=== PATIENT | female | born 1950 | race Caucasian/White ===

== ENCOUNTER 2023-10-25 12:51 | Emergency (ER) | payer MEDICARE ==
[~2023-10-25] VITALS: Ht 160 cm; Wt 73.9 kg
[~2023-10-25 12:51] MED LIST: AMIODARONE HCL200 MG; AMIODARONE HCL200 MG PO; ATORVASTATIN CA40 MG; BUSPIRONE HCL5 MG; BUTRANS1 EAC1; CYMBALTA30 MG; DESMOPRESSIN; DULOXETINE HCL60 MG; GABAPENTIN100 MG PO; HYDRALAZINE HC100 MG PO; LIDODERM700 MG; LOSARTAN POTASS25 MG; MACROBID 100 M100 MG PO; METFORMIN HCL500 MG PO; METOPROLOL TART50 MG PO; MIRTAZAPINE7.5 MG; ONDANSETRON ODT4 MG PO; OXYCODONE-ACET1 EAC6; PANTOPRAZOLE SO40 MG PO; PLAVIX75 MG PO; TRAZODONE HCL50 MG; TROSPIUM CHLORI20 MG; XARELTO20 MG PO
[2023-10-25 13:35] VITALS: PULSE 73; RESP 16; TEMP 97.9; O2SAT 100
[2023-10-25] MEDS ORDERED: CEFDINIR300 MG PO (14:06)
== END 2023-10-25 15:29 | disposition home or self-care (01) ==
LOC: ER 12:57
DX: Z46.6 Encounter for fitting and adjustment of urinary device (principal); I10 Essential (primary) hypertension; D64.9 Anemia, unspecified; K21.9 Gastro-esophageal reflux disease without esophagitis; G47.30 Sleep apnea, unspecified; F41.9 Anxiety disorder, unspecified; F32.A Depression, unspecified; Z86.73 Personal history of transient ischemic attack (TIA), and cerebral infarction without residual deficits
CPT/HCPCS: 51700; 87086; 87186; 99283

== ENCOUNTER 2023-12-05 00:16 | Inpatient (IN) | payer MEDICARE ==
[~2023-12-05] VITALS: Ht 160 cm; Wt 83.7 kg
[2023-12-05] VITALS (16 sets, daily range): BP systolic 113–144; BP diastolic 56–90; PULSE 64–87; RESP 16–20; TEMP 97.9–98.6; O2SAT 96–100
[~2023-12-05 00:16] MED LIST changes: +CEFDINIR300 MG PO; -MIRTAZAPINE7.5 MG; +MIRTAZAPINE7.5 MG PO
[2023-12-05 01:28] LABS: BASOPHILS # (AUTO) 0.1 (0.0-0.1); BASOPHILS % 0.7 % (0.0-1.0); EOSINOPHILS # (AUTO) 0.7 (0.0-0.4); EOSINOPHILS % 6.9 % (0.0-6.0); HEMATOCRIT 23.6 % (34.2-44.1); HEMOGLOBIN 7.4 g/dL (12.0-16.0); LYMPHOCYTES # (AUTO) 1.8 (1.0-3.2); LYMPHOCYTES % 16.8 % (18.0-39.1); MEAN CORPUSCULAR HEMOGLOBIN 33.8 pg (28-32); MEAN CORPUSCULAR HGB CONC 31.4 g/dL (31-35); MEAN CORPUSCULAR VOLUME 107.8 fL (81-99); MONOCYTES # (AUTO) 1.3 (0.2-0.8); MONOCYTES % 11.8 % (4.4-11.3); NEUTROPHILS # (AUTO) 6.8 (2.1-6.9); NEUTROPHILS % 63.3 % (38.7-80.0); PLATELET COUNT 401 x10e3/uL (140-360); RED BLOOD COUNT 2.19 x10e6/uL (3.6-5.1); RED CELL DISTRIBUTION WIDTH 21.4 % (11.7-14.4); WHITE BLOOD COUNT 10.69 x10e3/uL (4.8-10.8)
[2023-12-05 01:48] LABS: ALBUMIN 2.7 g/dL (3.5-5.0); ALBUMIN/GLOBULIN RATIO 0.7 (0.8-2.0); BILIRUBIN,TOTAL 0.9 mg/dL (0.2-1.2); CALCIUM 8.3 mg/dL (8.4-10.2); CREATININE, SERUM 0.8 mg/dL (0.57-1.11); TOTAL PROTEIN 6.5 g/dL (6.5-8.1)
[2023-12-05] MEDS ORDERED: DEXTROSE 50% SYRINGE 50 ML IV PRN (03:15)
[2023-12-05] MEDS: SODIUM CHLORIDE 0.9% 1000ML 1,000 ML IV ONE (03:30)
[2023-12-05] MEDS: Vancomycin IV 1 GM in SODIUM CHLORIDE 0.9% 250ML 250 ML IV SCH (04:23)
[2023-12-05] MEDS ORDERED: SODIUM CHLORIDE 0.9% 250ML 250 ML ONE ×2 (04:29→06:37)
[2023-12-05] MEDS ORDERED: Vancomycin IV 1 GM VIAL ONE (04:29)
[2023-12-05] MEDS: ALBUTEROL SULF 0.083% NEB SOLN 3 ML NEB NEB SCH (07:46)
[2023-12-05] MEDS: SODIUM CHLORIDE 0.9% 250ML 250 ML IV ONE (07:59)
[2023-12-05] MEDS: INSULIN REGULAR, HUMAN 100 UNIT/1 ML SQ SCH (08:01)
[2023-12-05] MEDS ORDERED: IOPAMIDOL 370 MG/ML 100 ML INFUS..BTL INJ ONE (13:58)
[2023-12-05] MEDS ORDERED: MIRTAZAPINE 15 MG TAB PO SCH (17:00)
[2023-12-05] MEDS: METFORMIN HCL 500 MG TAB PO SCH (17:03)
[2023-12-05] MEDS: DULOXETINE HCL 30 MG DELAYED RELEASE PO SCH (17:04)
[2023-12-05 17:26] LABS: % IRON SATURATION 79 % (15-50); IRON 139 ug/dL (50-170); TOTAL IRON BINDING CAPACITY 176 ug/dL (261-478); TRANSFERRIN 126 mg/dL (180-382)
[2023-12-05] MEDS: ATORVASTATIN 40 MG TAB PO SCH (20:57)
[2023-12-05] MEDS: TRAZODONE HCL 50 MG TAB PO SCH (20:57)
[2023-12-06] VITALS (14 sets, daily range): BP systolic 107–151; BP diastolic 45–70; PULSE 74–103; RESP 18–20; TEMP 97.8–98.7; O2SAT 90–100
[2023-12-06 05:13] LABS: BASOPHILS # (AUTO) 0.1 (0.0-0.1); BASOPHILS % 0.5 % (0.0-1.0); EOSINOPHILS # (AUTO) 0.5 (0.0-0.4); EOSINOPHILS % 4.2 % (0.0-6.0); HEMATOCRIT 26.3 % (34.2-44.1); HEMOGLOBIN 8.2 g/dL (12.0-16.0); LYMPHOCYTES # (AUTO) 1.3 (1.0-3.2); LYMPHOCYTES % 11.5 % (18.0-39.1); MEAN CORPUSCULAR HGB CONC 31.2 g/dL (31-35); MEAN CORPUSCULAR VOLUME 102.7 fL (81-99); MONOCYTES # (AUTO) 1.1 (0.2-0.8); MONOCYTES % 9.7 % (4.4-11.3); NEUTROPHILS # (AUTO) 8.4 (2.1-6.9); NEUTROPHILS % 73.6 % (38.7-80.0); PLATELET COUNT 395 x10e3/uL (140-360); RED BLOOD COUNT 2.56 x10e6/uL (3.6-5.1); RED CELL DISTRIBUTION WIDTH 24.6 % (11.7-14.4); WHITE BLOOD COUNT 11.39 x10e3/uL (4.8-10.8)
[2023-12-06] MEDS ORDERED: Vancomycin IV 1 GM VIAL ONE (05:17)
[2023-12-06] MEDS ORDERED: Azithromycin IV 500 MG 10 ML VIAL ONE (05:18)
[2023-12-06 05:38] LABS: ALBUMIN 2.7 g/dL (3.5-5.0); ALBUMIN/GLOBULIN RATIO 0.8 (0.8-2.0); ANION GAP 12.8 mmol/L (8-16); BILIRUBIN,TOTAL 1.3 mg/dL (0.2-1.2); CALCIUM 8.4 mg/dL (8.4-10.2); CREATININE, SERUM 0.74 mg/dL (0.57-1.11); POTASSIUM 4.8 mmol/L (3.5-5.1); TOTAL PROTEIN 5.9 g/dL (6.5-8.1)
[2023-12-06] MEDS ORDERED: HYDRALAZINE HCL 100 MG TABLET PO SCH (06:00)
[2023-12-06 07:11] LABS: INR 1.05; PROTHROMBIN TIME 14.2 seconds (11.9-14.5)
[2023-12-06] MEDS: BUDESONIDE 0.5MG/2 ML NEB INH SCH (07:48)
[2023-12-06] MEDS: PANTOPRAZOLE SOD 40 MG TABEC PO SCH (09:45)
[2023-12-06] MEDS: LOSARTAN POTASSIUM 25 MG TAB PO SCH (09:45)
[2023-12-06] MEDS: GABAPENTIN 100 MG CAP PO SCH (09:45)
[2023-12-06] MEDS: LIDOCAINE 4% PATCH TP SCH (09:45)
[2023-12-06] MEDS: METOPROLOL TARTRATE 50 MG TAB PO SCH (09:45)
[2023-12-06] MEDS: AMIODARONE HCL 200 MG TAB PO SCH (09:46)
[2023-12-06] MEDS: CLOPIDOGREL BISULFATE 75 MG TAB PO SCH (10:32)
[2023-12-06] MEDS: RIVAROXABAN 20 MG TABLET PO SCH (10:32)
[2023-12-06 16:10] LABS: BODY FLUID TYPE PLEURAL
[2023-12-06 16:11] LABS: BODY FLUID APPEARANCE SL.CLOUDY; BODY FLUID COLOR YELLOW
[2023-12-06 16:43] LABS: WBC,BODY FLUID 118 cells/uL
[2023-12-06 16:44] LABS: RBC,BODY FLUID < 2000 cells/uL
[2023-12-06] MEDS ORDERED: HYDRALAZINE HCL 20 MG/ML VIAL IV PRN (18:15)
[2023-12-06 18:16] LABS: LYMPHOCYTES,BODY FLUID 18 %; MONO/MACROPHG,BODY FLUID 41 %; NEUTROPHILS,BODY FLUID 14 %; OTHER CELLS,BODY FLUID 27 %; TOTAL CELLS COUNTED (DIFF) 100
[2023-12-06] MEDS: MIRTAZAPINE 15 MG TAB PO SCH (20:42)
[2023-12-07] VITALS (13 sets, daily range): BP systolic 110–131; BP diastolic 45–61; PULSE 77–104; RESP 18–22; TEMP 97.5–98.6; O2SAT 92–100
[2023-12-07 04:57] LABS: BASOPHILS % 0.2 % (0.0-1.0); EOSINOPHILS # (AUTO) 0.4 (0.0-0.4); EOSINOPHILS % 3.1 % (0.0-6.0); HEMATOCRIT 26.1 % (34.2-44.1); LYMPHOCYTES # (AUTO) 1.8 (1.0-3.2); LYMPHOCYTES % 14.6 % (18.0-39.1); MEAN CORPUSCULAR HEMOGLOBIN 32.5 pg (28-32); MEAN CORPUSCULAR HGB CONC 30.7 g/dL (31-35); MONOCYTES # (AUTO) 1.4 (0.2-0.8); MONOCYTES % 11.1 % (4.4-11.3); NEUTROPHILS # (AUTO) 8.7 (2.1-6.9); NEUTROPHILS % 70.4 % (38.7-80.0); PLATELET COUNT 428 x10e3/uL (140-360); RED BLOOD COUNT 2.46 x10e6/uL (3.6-5.1); RED CELL DISTRIBUTION WIDTH 23.9 % (11.7-14.4)
[2023-12-07 05:02] LABS: MEAN CORPUSCULAR VOLUME 106.1 fL (81-99)
[2023-12-07 05:17] LABS: ANION GAP 13.5 mmol/L (8-16); CALCIUM 8.5 mg/dL (8.4-10.2); CREATININE, SERUM 0.91 mg/dL (0.57-1.11); POTASSIUM 4.5 mmol/L (3.5-5.1)
[2023-12-07] MEDS: ONDANSETRON HCL 4 MG ORAL DISINTEGRATING TAB PO PRN (09:05)
[2023-12-07] MEDS ORDERED: CELECOXIB 100 MG CAP PO PRN (09:15)
[2023-12-07] MEDS: PANTOPRAZOLE SOD 40 MG TABEC PO ONE (12:52)
[2023-12-08] VITALS (14 sets, daily range): BP systolic 111–132; BP diastolic 43–76; PULSE 72–96; RESP 16–24; TEMP 97.3–99.2; O2SAT 90–98
[2023-12-08 05:30] LABS: BASOPHILS % 0.2 % (0.0-1.0); EOSINOPHILS # (AUTO) 0.5 (0.0-0.4); EOSINOPHILS % 3.6 % (0.0-6.0); HEMATOCRIT 23.5 % (34.2-44.1); HEMOGLOBIN 7.4 g/dL (12.0-16.0); LYMPHOCYTES # (AUTO) 1.6 (1.0-3.2); LYMPHOCYTES % 12.5 % (18.0-39.1); MEAN CORPUSCULAR HEMOGLOBIN 32.7 pg (28-32); MEAN CORPUSCULAR HGB CONC 31.5 g/dL (31-35); MONOCYTES # (AUTO) 1.3 (0.2-0.8); MONOCYTES % 10.2 % (4.4-11.3); NEUTROPHILS # (AUTO) 9.4 (2.1-6.9); PLATELET COUNT 435 x10e3/uL (140-360); RED BLOOD COUNT 2.26 x10e6/uL (3.6-5.1); RED CELL DISTRIBUTION WIDTH 23.5 % (11.7-14.4); WHITE BLOOD COUNT 12.91 x10e3/uL (4.8-10.8)
[2023-12-08 05:53] LABS: ANION GAP 13.4 mmol/L (8-16); CALCIUM 8.3 mg/dL (8.4-10.2); CREATININE, SERUM 0.79 mg/dL (0.57-1.11); POTASSIUM 4.4 mmol/L (3.5-5.1)
[2023-12-08] MEDS: PANTOPRAZOLE SOD 40 MG TABEC PO SCH (10:32)
[2023-12-08] MEDS: ACETAMINOPHEN 325 MG TAB PO ONE (18:01)
[2023-12-08] MEDS: HYDROCODONE/APAP 10MG-325MG TAB PO PRN (23:10)
[2023-12-09] VITALS (12 sets, daily range): BP systolic 108–136; BP diastolic 60–74; PULSE 74–121; RESP 20–22; TEMP 97.4–98.7; O2SAT 93–98
[2023-12-09 05:46] LABS: BASOPHILS # (AUTO) 0.1 (0.0-0.1); BASOPHILS % 0.3 % (0.0-1.0); EOSINOPHILS # (AUTO) 0.8 (0.0-0.4); EOSINOPHILS % 4.6 % (0.0-6.0); HEMATOCRIT 24.3 % (34.2-44.1); HEMOGLOBIN 7.6 g/dL (12.0-16.0); LYMPHOCYTES # (AUTO) 2.8 (1.0-3.2); LYMPHOCYTES % 16.4 % (18.0-39.1); MEAN CORPUSCULAR HEMOGLOBIN 33.2 pg (28-32); MEAN CORPUSCULAR HGB CONC 31.3 g/dL (31-35); MEAN CORPUSCULAR VOLUME 106.1 fL (81-99); MONOCYTES # (AUTO) 1.9 (0.2-0.8); MONOCYTES % 10.7 % (4.4-11.3); NEUTROPHILS # (AUTO) 11.7 (2.1-6.9); NEUTROPHILS % 67.4 % (38.7-80.0); PLATELET COUNT 522 x10e3/uL (140-360); RED BLOOD COUNT 2.29 x10e6/uL (3.6-5.1); RED CELL DISTRIBUTION WIDTH 22.8 % (11.7-14.4)
[2023-12-09 06:12] LABS: ALBUMIN 2.5 g/dL (3.5-5.0); ALBUMIN/GLOBULIN RATIO 0.6 (0.8-2.0); ANION GAP 14.4 mmol/L (8-16); BILIRUBIN,TOTAL 0.6 mg/dL (0.2-1.2); CALCIUM 8.8 mg/dL (8.4-10.2); CREATININE, SERUM 0.77 mg/dL (0.57-1.11); POTASSIUM 4.4 mmol/L (3.5-5.1); TOTAL PROTEIN 6.5 g/dL (6.5-8.1)
[2023-12-09] MEDS: Vancomycin IV 1 GM in SODIUM CHLORIDE 0.9% 250ML 250 ML IV SCH (06:26)
[2023-12-09 07:13] LABS: PLATELET ESTIMATE ADEQUATE; PLATELET MORPHOLOGY COMMENT NORMAL; RBC MORPHOLOGY COMMENT ABNORMAL
[2023-12-09 07:14] LABS: ANISOCYTOSIS MODERATE; HYPOCHROMASIA MODERATE
[2023-12-09 09:54] LABS: TOTAL PROTEIN,BODY FLUID 1.5 g/dL
[2023-12-09 10:47] LABS: FREE THYROXINE INDEX 2.1853 (1.4-3.8); T3 UPTAKE 30.65 % (22.5-37.0); THYROID STIMULATING HORMONE 1.644 uIU/mL (0.350-4.940)
[2023-12-09 10:54] LABS: T4 (THYROXINE) 7.13 ug/dL (4.5-10.9)
[2023-12-09] MEDS: METHYLPREDNISOLONE SOD SUCC 40 MG/ML VIAL 1ML IV SCH (13:07)
[2023-12-09] MEDS: FUROSEMIDE INJ 10 MG/ML 2 ML VIAL IV ONE (13:07)
[2023-12-09 18:47] LABS: % IRON SATURATION 12 % (15-50); IRON 21 ug/dL (50-170); TOTAL IRON BINDING CAPACITY 169 ug/dL (261-478); TRANSFERRIN 121 mg/dL (180-382)
[2023-12-09] MEDS ORDERED: INSULIN GLARGINE 100 UNITS/ML VIAL SQ SCH (21:00)
[2023-12-09] MEDS: INSULIN GLARGINE 100 UNITS/ML VIAL SQ SCH (22:45)
[2023-12-10] VITALS (17 sets, daily range): BP systolic 107–118; BP diastolic 44–71; PULSE 78–97; RESP 16–26; TEMP 97.2–98; O2SAT 9–99
[2023-12-10 05:38] LABS: BASOPHILS % 0.1 % (0.0-1.0); HEMATOCRIT 23.6 % (34.2-44.1); HEMOGLOBIN 7.2 g/dL (12.0-16.0); LYMPHOCYTES # (AUTO) 0.4 (1.0-3.2); LYMPHOCYTES % 2.8 % (18.0-39.1); MEAN CORPUSCULAR HEMOGLOBIN 32.1 pg (28-32); MEAN CORPUSCULAR HGB CONC 30.5 g/dL (31-35); MEAN CORPUSCULAR VOLUME 105.4 fL (81-99); MONOCYTES # (AUTO) 1.1 (0.2-0.8); MONOCYTES % 7.4 % (4.4-11.3); NEUTROPHILS % 89.2 % (38.7-80.0); PLATELET COUNT 510 x10e3/uL (140-360); RED BLOOD COUNT 2.24 x10e6/uL (3.6-5.1); RED CELL DISTRIBUTION WIDTH 22.9 % (11.7-14.4); WHITE BLOOD COUNT 14.56 x10e3/uL (4.8-10.8)
[2023-12-10 06:45] LABS: ANION GAP 16.9 mmol/L (8-16); CALCIUM 8.8 mg/dL (8.4-10.2); CREATININE, SERUM 0.87 mg/dL (0.57-1.11); POTASSIUM 4.9 mmol/L (3.5-5.1)
[2023-12-10] MEDS: FUROSEMIDE INJ 10 MG/ML 2 ML VIAL IV SCH (08:41)
[2023-12-10 09:14] LABS: LYMPHOCYTES % (MANUAL) 3 % (19-48); MONOCYTES % (MANUAL) 4 % (3.4-9.0); NEUTROPHILS % (MANUAL) 93 % (40-74)
[2023-12-10] MEDS ORDERED: CHLORASEPTIC SPRAY 177 ML BTL MM PRN (09:15)
[2023-12-10 09:18] LABS: PLATELET ESTIMATE MODERATELY INCREASED; PLATELET MORPHOLOGY COMMENT FEW LARGE
[2023-12-10 09:24] LABS: ANISOCYTOSIS SLIGHT
[2023-12-10 09:26] LABS: HYPOCHROMASIA SLIGHT; RBC MORPHOLOGY COMMENT NORMAL
[2023-12-10] MEDS: IRON SUCROSE 100 MG in SODIUM CHLORIDE 0.9% 100 ML IV SCH (11:37)
[2023-12-10] MEDS ORDERED: IRON SUCROSE 100 MG in SODIUM CHLORIDE 0.9% 100 ML IV SCH (19:15)
[2023-12-11] VITALS (37 sets, daily range): BP systolic 95–153; BP diastolic 52–117; PULSE 77–96; RESP 17–38; TEMP 97.3–98.3; O2SAT 87–100
[2023-12-11] MEDS: FUROSEMIDE INJ 10 MG/ML 2 ML VIAL IV STA (05:10)
[2023-12-11] MEDS: METHYLPREDNISOLONE SOD SUCC 40 MG/ML VIAL 1ML IV SCH (05:10)
[2023-12-11] MEDS ORDERED: FUROSEMIDE INJ 10 MG/ML 2 ML VIAL ONE (05:12)
[2023-12-11] MEDS ORDERED: SODIUM CHLORIDE 0.9% 250ML 250 ML IV ONE (05:15)
[2023-12-11 05:21] LABS: BASOPHILS % 0.1 % (0.0-1.0); HEMATOCRIT 26.5 % (34.2-44.1); HEMOGLOBIN 7.8 g/dL (12.0-16.0); LYMPHOCYTES # (AUTO) 1.2 (1.0-3.2); LYMPHOCYTES % 5.8 % (18.0-39.1); MEAN CORPUSCULAR HEMOGLOBIN 32.1 pg (28-32); MEAN CORPUSCULAR HGB CONC 29.4 g/dL (31-35); MEAN CORPUSCULAR VOLUME 109.1 fL (81-99); MONOCYTES # (AUTO) 2.1 (0.2-0.8); NEUTROPHILS # (AUTO) 17.6 (2.1-6.9); NEUTROPHILS % 83.1 % (38.7-80.0); PLATELET COUNT 613 x10e3/uL (140-360); RED BLOOD COUNT 2.43 x10e6/uL (3.6-5.1); RED CELL DISTRIBUTION WIDTH 23.5 % (11.7-14.4); WHITE BLOOD COUNT 21.18 x10e3/uL (4.8-10.8)
[2023-12-11 05:54] LABS: ABG PCO2 48 mmHg (35-45); ABG PO2 54 mmHg (80-105)
[2023-12-11 05:55] LABS: ABG HCO3 30 mmol/L (22-26); ABG TCO2 31
[2023-12-11 05:58] LABS: ANION GAP 15.7 mmol/L (8-16); CALCIUM 8.9 mg/dL (8.4-10.2); CREATININE, SERUM 1.26 mg/dL (0.57-1.11)
[2023-12-11] MEDS: METHYLPREDNISOLONE SOD SUCC 40 MG/ML VIAL 1ML ONE (06:00)
[2023-12-11 06:10] LABS: BILIRUBIN,URINE NEGATIVE (NEGATIVE); CLARITY,URINE CLOUDY (CLEAR); COLOR,URINE YELLOW (YELLOW); GLUCOSE, URINE 2+ (NEGATIVE); KETONES,URINE NEGATIVE (NEGATIVE); LEUKOCYTE ESTERASE ,URINE LARGE (NEGATIVE); NITRITE,URINE NEGATIVE (NEGATIVE); PH,URINE 5.5 (5 - 7); PROTEIN,URINE DIPSTICK 1+ (NEGATIVE); URINE UROBILINOGEN 0.2 mg/dL (0.2 - 1)
[2023-12-11 06:23] LABS: BACTERIA,URINE MANY /HPF; EPITHELIAL CELLS,URINE FEW /LPF; RBC,URINE 21-50 /HPF (0-5); WBC,URINE (MAN) >50 /HPF (0-5)
[2023-12-11 06:24] LABS: YEAST,URINE MANY
[2023-12-11 06:36] LABS: POTASSIUM 5.7 mmol/L (3.5-5.1)
[2023-12-11] MEDS ORDERED: SODIUM CHLORIDE 0.9% 250ML 250 ML IV PRN (07:00)
[2023-12-11 08:41] LABS: BAND NEUTROPHILS % (MANUAL) 1 %; LYMPHOCYTES % (MANUAL) 9 % (19-48); MONOCYTES % (MANUAL) 2 % (3.4-9.0); NEUTROPHILS % (MANUAL) 88 % (40-74); NUCLEATED RED BLOOD CELLS 1
[2023-12-11 08:42] LABS: ANISOCYTOSIS MODERATE; HYPOCHROMASIA MODERATE; OVALOCYTES FEW; PLATELET ESTIMATE SLIGHTLY INCREASED; PLATELET MORPHOLOGY COMMENT NORMAL; RBC MORPHOLOGY COMMENT ABNORMAL
[2023-12-11] MEDS ORDERED: PREDNISONE 20 MG TAB PO SCH (09:00)
[2023-12-11] MEDS: ACETYLCYSTEINE 200 MG/ML 4 ML VIAL INH SCH (10:35)
[2023-12-11] MEDS: SOD POLYSTYRENE SULFONATE SUSP 15 GM/60 ML BTL PR ONE (12:14)
[2023-12-11] MEDS: Doxycycline IV 100 MG in SODIUM CHLORIDE 0.9% 100 ML IV SCH (13:15)
[2023-12-11 14:47] LABS: HEMATOCRIT 26.7 % (34.2-44.1); HEMOGLOBIN 8.4 g/dL (12.0-16.0)
[2023-12-11] MEDS: LACTULOSE SYRUP 20 GM/30 ML UDC PO ONE (17:24)
[2023-12-11] MEDS: INSULIN REGULAR, HUMAN 100 UNIT/1 ML SQ ONE (18:03)
[2023-12-11] MEDS: INSULIN GLARGINE 100 UNITS/ML VIAL SQ SCH (21:34)
[2023-12-12] VITALS (97 sets, daily range): BP systolic 100–155; BP diastolic 51–125; PULSE 33–95; RESP 16–41; TEMP 97–98.4; O2SAT 84–100
[2023-12-12 06:44] LABS: HEMATOCRIT 28.5 % (34.2-44.1); LYMPHOCYTES # (AUTO) 0.5 (1.0-3.2); LYMPHOCYTES % 3.4 % (18.0-39.1); MEAN CORPUSCULAR HGB CONC 31.6 g/dL (31-35); MEAN CORPUSCULAR VOLUME 101.4 fL (81-99); MONOCYTES # (AUTO) 0.9 (0.2-0.8); MONOCYTES % 6.3 % (4.4-11.3); NEUTROPHILS % 89.6 % (38.7-80.0); PLATELET COUNT 417 x10e3/uL (140-360); RED BLOOD COUNT 2.81 x10e6/uL (3.6-5.1); RED CELL DISTRIBUTION WIDTH 22.9 % (11.7-14.4)
[2023-12-12 07:06] LABS: ALBUMIN 2.5 g/dL (3.5-5.0); ALBUMIN/GLOBULIN RATIO 0.6 (0.8-2.0); ANION GAP 13.6 mmol/L (8-16); BILIRUBIN,TOTAL 0.8 mg/dL (0.2-1.2); CALCIUM 8.8 mg/dL (8.4-10.2); CREATININE, SERUM 0.84 mg/dL (0.57-1.11); POTASSIUM 3.6 mmol/L (3.5-5.1); TOTAL PROTEIN 6.8 g/dL (6.5-8.1)
[2023-12-12 09:45] LABS: LYMPHOCYTES % (MANUAL) 8 % (19-48); MONOCYTES % (MANUAL) 3 % (3.4-9.0); NEUTROPHILS % (MANUAL) 89 % (40-74); PLATELET ESTIMATE SLIGHTLY INCREASED; PLATELET MORPHOLOGY COMMENT NORMAL; RBC MORPHOLOGY COMMENT ABNORMAL
[2023-12-12 09:48] LABS: ANISOCYTOSIS SLIGHT
[2023-12-12] MEDS: EPOETIN ALFA-EPBX 10,000 UNIT/ML VIAL SC SCH (10:41)
[2023-12-12] MEDS: FUROSEMIDE INJ 10 MG/ML 2 ML VIAL IV ONE (11:48)
[2023-12-12] MEDS: MUPIROCIN 2% OINT 22 GM TUBE TOP SCH (17:00)
[2023-12-13] VITALS (54 sets, daily range): BP systolic 91–152; BP diastolic 47–108; PULSE 62–97; RESP 17–53; TEMP 97.6–99.2; O2SAT 83–100
[2023-12-13 00:34] LABS: ANION GAP 11.8 mmol/L (8-16); CALCIUM 8.7 mg/dL (8.4-10.2); CREATININE, SERUM 0.85 mg/dL (0.57-1.11); POTASSIUM 3.8 mmol/L (3.5-5.1)
[2023-12-13] MEDS: DEXMEDETOMIDINE 400MCG/NS100ML 100 ML IV PRN (01:00)
[2023-12-13] MEDS: FUROSEMIDE INJ 10 MG/ML 2 ML VIAL IV ONE ×2 (01:00→18:40)
[2023-12-13] MEDS ORDERED: SUCCINYLCHOLINE CHLORIDE 20 MG/ML 10ML VIAL ONE (12:19)
[2023-12-13] MEDS ORDERED: ETOMIDATE 2 MG/ML 10 ML INJ IV ONE (12:19)
[2023-12-13 15:15] LABS: CALCIUM 8.8 mg/dL (8.4-10.2); CREATININE, SERUM 0.8 mg/dL (0.57-1.11)
[2023-12-13] MEDS: PROPOFOL IV EMULSION 10MG/ML 100 ML IV PRN (22:00)
[2023-12-13] MEDS: FENTANYL 2000MCG/NS 250 250 ML IV PRN (22:00)
[2023-12-13 23:33] LABS: BASOPHILS % 0.1 % (0.0-1.0); HEMATOCRIT 23.4 % (34.2-44.1); HEMOGLOBIN 7.4 g/dL (12.0-16.0); LYMPHOCYTES # (AUTO) 0.1 (1.0-3.2); LYMPHOCYTES % 0.3 % (18.0-39.1); MEAN CORPUSCULAR HEMOGLOBIN 32.2 pg (28-32); MEAN CORPUSCULAR HGB CONC 31.6 g/dL (31-35); MEAN CORPUSCULAR VOLUME 101.7 fL (81-99); MONOCYTES # (AUTO) 0.8 (0.2-0.8); MONOCYTES % 4.5 % (4.4-11.3); NEUTROPHILS # (AUTO) 16.2 (2.1-6.9); NEUTROPHILS % 94.2 % (38.7-80.0); PLATELET COUNT 418 x10e3/uL (140-360); RED CELL DISTRIBUTION WIDTH 21.6 % (11.7-14.4); WHITE BLOOD COUNT 17.23 x10e3/uL (4.8-10.8)
[2023-12-13 23:41] LABS: ANION GAP 13.8 mmol/L (8-16); CALCIUM 8.3 mg/dL (8.4-10.2); CREATININE, SERUM 0.45 mg/dL (0.57-1.11); POTASSIUM 3.8 mmol/L (3.5-5.1)
[2023-12-14] VITALS (79 sets, daily range): BP systolic 82–159; BP diastolic 24–86; PULSE 50–85; RESP 16–22; TEMP 97.8–98.4; O2SAT 86–100
[2023-12-14] MEDS ORDERED: FENTANYL 2000MCG/NS 250 250 ML IV PRN ×2 (03:30→04:00)
[2023-12-14 06:13] LABS: ABG HCO3 34 mmol/L (22-26); ABG PCO2 45 mmHg (35-45); ABG PH 7.48 (7.35-7.45); ABG PO2 70 mmHg (80-105); ABG TCO2 35
[2023-12-14 06:17] LABS: ABG HCO3 34 mmol/L (22-26); ABG PCO2 45 mmHg (35-45); ABG PH 7.48 (7.35-7.45); ABG PO2 70 mmHg (80-105); ABG TCO2 35
[2023-12-14 07:10] LABS: BASOPHILS % 0.1 % (0.0-1.0); LYMPHOCYTES # (AUTO) 0.3 (1.0-3.2); LYMPHOCYTES % 2.7 % (18.0-39.1); MEAN CORPUSCULAR HEMOGLOBIN 33.2 pg (28-32); MEAN CORPUSCULAR HGB CONC 32.7 g/dL (31-35); MEAN CORPUSCULAR VOLUME 101.4 fL (81-99); MONOCYTES # (AUTO) 0.6 (0.2-0.8); MONOCYTES % 5.2 % (4.4-11.3); NEUTROPHILS # (AUTO) 10.7 (2.1-6.9); NEUTROPHILS % 91.4 % (38.7-80.0); PLATELET COUNT 347 x10e3/uL (140-360); RED BLOOD COUNT 2.11 x10e6/uL (3.6-5.1); RED CELL DISTRIBUTION WIDTH 21.2 % (11.7-14.4); WHITE BLOOD COUNT 11.67 x10e3/uL (4.8-10.8)
[2023-12-14 07:17] LABS: HEMATOCRIT 21.7 % (34.2-44.1)
[2023-12-14 07:32] LABS: ANION GAP 11.8 mmol/L (8-16); CALCIUM 8.2 mg/dL (8.4-10.2); CREATININE, SERUM 0.79 mg/dL (0.57-1.11); POTASSIUM 3.8 mmol/L (3.5-5.1)
[2023-12-14] MEDS: FUROSEMIDE INJ 10 MG/ML 2 ML VIAL IV ONE (08:17)
[2023-12-14] MEDS: LORAZEPAM INJ 2 MG/ML VIAL ONE (08:22)
[2023-12-14] MEDS: PROPOFOL IV EMULSION 10MG/ML 100 ML ONE ×2 (08:22)
[2023-12-14] MEDS: SODIUM CHLORIDE 0.9% 250ML 250 ML ONE (08:23)
[2023-12-14 08:54] LABS: ABG HCO3 35 mmol/L (22-26); ABG PCO2 57 mmHg (35-45); ABG PO2 90 mmHg (80-105); ABG TCO2 37
[2023-12-14] MEDS: SODIUM CHLORIDE 0.9% 250ML 250 ML IV ONE (11:32)
[2023-12-14] MEDS ORDERED: PIPERACILLIN/TAZOBACTAM 4.5 GM in SODIUM CHLORIDE 0.9% 100 ML IV SCH (14:00)
[2023-12-14] MEDS: MEROPENEM 1 GM in SODIUM CHLORIDE 0.9% 100 ML IV SCH (14:47)
[2023-12-14] MEDS: Vancomycin IV 1 GM in SODIUM CHLORIDE 0.9% 250ML 250 ML IV SCH (15:32)
[2023-12-14] MEDS: INSULIN REGULAR, HUMAN 100 UNIT/1 ML SQ SCH (16:40)
[2023-12-14] MEDS: INSULIN GLARGINE 100 UNITS/ML VIAL SQ SCH (21:40)
[2023-12-15] VITALS (83 sets, daily range): BP systolic 98–137; BP diastolic 34–91; PULSE 60–97; RESP 13–26; TEMP 97.8–98.4; O2SAT 91–98
[2023-12-15 06:59] LABS: BASOPHILS % 0.1 % (0.0-1.0); HEMATOCRIT 25.8 % (34.2-44.1); HEMOGLOBIN 8.2 g/dL (12.0-16.0); LYMPHOCYTES # (AUTO) 0.3 (1.0-3.2); LYMPHOCYTES % 2.3 % (18.0-39.1); MEAN CORPUSCULAR HGB CONC 31.8 g/dL (31-35); MEAN CORPUSCULAR VOLUME 100.8 fL (81-99); MONOCYTES # (AUTO) 0.5 (0.2-0.8); NEUTROPHILS # (AUTO) 9.9 (2.1-6.9); NEUTROPHILS % 92.1 % (38.7-80.0); PLATELET COUNT 341 x10e3/uL (140-360); RED BLOOD COUNT 2.56 x10e6/uL (3.6-5.1); WHITE BLOOD COUNT 10.71 x10e3/uL (4.8-10.8)
[2023-12-15 07:41] LABS: CALCIUM 7.9 mg/dL (8.4-10.2); CREATININE, SERUM 1.06 mg/dL (0.57-1.11)
[2023-12-15 10:51] LABS: ABG HCO3 32 mmol/L (22-26); ABG PCO2 52 mmHg (35-45); ABG PH 7.39 (7.35-7.45); ABG PO2 65 mmHg (80-105); ABG TCO2 33
[2023-12-15] MEDS: INSULIN REGULAR, HUMAN 100 UNIT/1 ML SQ SCH (16:26)
[2023-12-15] MEDS: INSULIN GLARGINE 100 UNITS/ML VIAL SQ ONE (16:27)
[2023-12-15] MEDS: METHYLPREDNISOLONE SOD SUCC 40 MG/ML VIAL 1ML IV SCH (20:06)
[2023-12-16] VITALS (91 sets, daily range): BP systolic 89–139; BP diastolic 37–67; PULSE 66–91; RESP 7–30; TEMP 98.2–98.9; O2SAT 88–99
[2023-12-16 06:41] LABS: BASOPHILS % 0.1 % (0.0-1.0); EOSINOPHILS # (AUTO) 0.2 (0.0-0.4); EOSINOPHILS % 0.7 % (0.0-6.0); HEMATOCRIT 25.1 % (34.2-44.1); HEMOGLOBIN 7.8 g/dL (12.0-16.0); MEAN CORPUSCULAR HGB CONC 31.1 g/dL (31-35); MEAN CORPUSCULAR VOLUME 102.9 fL (81-99); NEUTROPHILS % 88.1 % (38.7-80.0); PLATELET COUNT 368 x10e3/uL (140-360); RED BLOOD COUNT 2.44 x10e6/uL (3.6-5.1); RED CELL DISTRIBUTION WIDTH 20.8 % (11.7-14.4); WHITE BLOOD COUNT 20.46 x10e3/uL (4.8-10.8)
[2023-12-16 07:00] LABS: ALBUMIN/GLOBULIN RATIO 0.6 (0.8-2.0); BILIRUBIN,TOTAL 0.5 mg/dL (0.2-1.2); CALCIUM 8.3 mg/dL (8.4-10.2); CREATININE, SERUM 1.88 mg/dL (0.57-1.11); TOTAL PROTEIN 5.3 g/dL (6.5-8.1)
[2023-12-16] MEDS: NOREPINEPHRINE 8 MG/D5W 250 ML 250 ML IV SCH (08:19)
[2023-12-16] MEDS: INSULIN GLARGINE 100 UNITS/ML VIAL SQ SCH (09:27)
[2023-12-16 16:31] LABS: ABG HCO3 33 mmol/L (22-26); ABG PCO2 52 mmHg (35-45); ABG PH 7.41 (7.35-7.45); ABG PO2 70 mmHg (80-105); ABG TCO2 34
[2023-12-16] MEDS: METHYLPREDNISOLONE SOD SUCC 40 MG/ML VIAL 1ML IV SCH (20:43)
[2023-12-17] VITALS (72 sets, daily range): BP systolic 101–137; BP diastolic 42–55; PULSE 59–81; RESP 12–34; TEMP 98–101.8; O2SAT 89–97
[2023-12-17 06:44] LABS: BASOPHILS % 0.2 % (0.0-1.0); EOSINOPHILS # (AUTO) 0.8 (0.0-0.4); EOSINOPHILS % 3.1 % (0.0-6.0); HEMATOCRIT 27.8 % (34.2-44.1); HEMOGLOBIN 8.7 g/dL (12.0-16.0); MEAN CORPUSCULAR HEMOGLOBIN 32.2 pg (28-32); MEAN CORPUSCULAR HGB CONC 31.3 g/dL (31-35); MONOCYTES # (AUTO) 1.4 (0.2-0.8); MONOCYTES % 5.4 % (4.4-11.3); NEUTROPHILS # (AUTO) 22.1 (2.1-6.9); NEUTROPHILS % 85.2 % (38.7-80.0); PLATELET COUNT 399 x10e3/uL (140-360); RED CELL DISTRIBUTION WIDTH 20.4 % (11.7-14.4); WHITE BLOOD COUNT 25.94 x10e3/uL (4.8-10.8)
[2023-12-17 07:11] LABS: ANION GAP 13.2 mmol/L (8-16); CALCIUM 8.6 mg/dL (8.4-10.2); CREATININE, SERUM 1.24 mg/dL (0.57-1.11)
[2023-12-17 07:15] LABS: POTASSIUM 5.2 mmol/L (3.5-5.1)
[2023-12-17] MEDS ORDERED: Vancomycin IV 500 MG in SODIUM CHLORIDE 0.9% 100 ML IV SCH (10:00)
[2023-12-17 11:03] LABS: EOSINOPHILS % (MANUAL) 2 % (0-7); LYMPHOCYTES % (MANUAL) 4 % (19-48); MONOCYTES % (MANUAL) 3 % (3.4-9.0); NEUTROPHILS % (MANUAL) 91 % (40-74)
[2023-12-17 11:04] LABS: ANISOCYTOSIS MODERATE; PLATELET ESTIMATE ADEQUATE; PLATELET MORPHOLOGY COMMENT NORMAL; RBC MORPHOLOGY COMMENT ABNORMAL
[2023-12-17 11:05] LABS: HYPOCHROMASIA SLIGHT
[2023-12-17] MEDS: LINEZOLID 600 MG/D5W 300ML 300 ML IV SCH (14:59)
[2023-12-18] VITALS (63 sets, daily range): BP systolic 100–140; BP diastolic 41–61; PULSE 66–80; RESP 11–29; TEMP 98.8–102; O2SAT 85–100
[2023-12-18 07:29] LABS: BASOPHILS % 0.1 % (0.0-1.0); EOSINOPHILS # (AUTO) 1.1 (0.0-0.4); EOSINOPHILS % 6.2 % (0.0-6.0); HEMATOCRIT 25.3 % (34.2-44.1); HEMOGLOBIN 7.7 g/dL (12.0-16.0); LYMPHOCYTES % 5.6 % (18.0-39.1); MEAN CORPUSCULAR HEMOGLOBIN 31.7 pg (28-32); MEAN CORPUSCULAR HGB CONC 30.4 g/dL (31-35); MEAN CORPUSCULAR VOLUME 104.1 fL (81-99); MONOCYTES # (AUTO) 1.1 (0.2-0.8); MONOCYTES % 5.9 % (4.4-11.3); NEUTROPHILS # (AUTO) 14.6 (2.1-6.9); NEUTROPHILS % 80.4 % (38.7-80.0); PLATELET COUNT 327 x10e3/uL (140-360); RED BLOOD COUNT 2.43 x10e6/uL (3.6-5.1); RED CELL DISTRIBUTION WIDTH 19.9 % (11.7-14.4)
[2023-12-18 08:06] LABS: ALBUMIN 1.9 g/dL (3.5-5.0); ALBUMIN/GLOBULIN RATIO 0.5 (0.8-2.0); ANION GAP 10.3 mmol/L (8-16); BILIRUBIN,TOTAL 0.7 mg/dL (0.2-1.2); CALCIUM 8.2 mg/dL (8.4-10.2); CREATININE, SERUM 0.87 mg/dL (0.57-1.11); TOTAL PROTEIN 5.7 g/dL (6.5-8.1)
[2023-12-18 08:10] LABS: POTASSIUM 5.3 mmol/L (3.5-5.1)
[2023-12-18] MEDS: LACTULOSE SYRUP 20 GM/30 ML UDC PO ONE ×2 (11:01→15:30)
[2023-12-18] MEDS: SOD POLYSTYRENE SULFONATE SUSP 15 GM/60 ML BTL PO ONE ×2 (11:01→15:29)
[2023-12-18] MEDS: ACETAMINOPHEN 325 MG TAB PO PRN (15:29)
[2023-12-19] VITALS (45 sets, daily range): BP systolic 104–133; BP diastolic 42–59; PULSE 66–74; RESP 12–26; TEMP 98–100.5; O2SAT 89–100
[2023-12-19 06:45] LABS: SPECIMEN TYPE Peripheral blood
[2023-12-19 06:59] LABS: BASOPHILS % 0.2 % (0.0-1.0); EOSINOPHILS % 0.1 % (0.0-6.0); HEMATOCRIT 24.9 % (34.2-44.1); HEMOGLOBIN 7.6 g/dL (12.0-16.0); LYMPHOCYTES # (AUTO) 0.8 (1.0-3.2); LYMPHOCYTES % 3.9 % (18.0-39.1); MEAN CORPUSCULAR HEMOGLOBIN 32.5 pg (28-32); MEAN CORPUSCULAR HGB CONC 30.5 g/dL (31-35); MEAN CORPUSCULAR VOLUME 106.4 fL (81-99); MONOCYTES # (AUTO) 0.7 (0.2-0.8); MONOCYTES % 3.3 % (4.4-11.3); NEUTROPHILS # (AUTO) 17.7 (2.1-6.9); NEUTROPHILS % 90.7 % (38.7-80.0); PLATELET COUNT 322 x10e3/uL (140-360); RED BLOOD COUNT 2.34 x10e6/uL (3.6-5.1); RED CELL DISTRIBUTION WIDTH 19.8 % (11.7-14.4)
[2023-12-19 07:23] LABS: ALBUMIN 1.8 g/dL (3.5-5.0); ALBUMIN/GLOBULIN RATIO 0.5 (0.8-2.0); ANION GAP 13.1 mmol/L (8-16); BILIRUBIN,TOTAL 0.6 mg/dL (0.2-1.2); CALCIUM 7.9 mg/dL (8.4-10.2); CREATININE, SERUM 0.99 mg/dL (0.57-1.11); POTASSIUM 5.1 mmol/L (3.5-5.1); TOTAL PROTEIN 5.6 g/dL (6.5-8.1)
[2023-12-20] VITALS (52 sets, daily range): BP systolic 90–130; BP diastolic 38–58; PULSE 64–73; RESP 18–26; TEMP 99.3–100.6; O2SAT 95–100
[2023-12-20] MEDS: DEXMEDETOMIDINE 400MCG/NS100ML 100 ML IV PRN (02:16)
[2023-12-20] MEDS ORDERED: INSULIN GLARGINE 100 UNITS/ML VIAL SQ SCH (08:00)
== END 2023-12-20 13:00 | disposition hospice, inpatient (51) | DRG 207 ==
LOC: ER 00:21 → ERHOLD 03:09 → MED/SURG2 04:40 → ICU 12-11 05:30
PROVIDERS: ADMIT Family Medicine; ATTEND Family Medicine
PROC: 30233N1 Transfusion of Nonautologous Red Blood Cells into Peripheral Vein, Percutaneous Approach (ICD-10-PCS; 2023-12-05)
PROC: 0W993ZZ Drainage of Right Pleural Cavity, Percutaneous Approach (ICD-10-PCS; 2023-12-06)
PROC: 5A09357 Assistance with Respiratory Ventilation, Less than 24 Consecutive Hours, Continuous Positive Airway Pressure (ICD-10-PCS; 2023-12-11)
PROC: 02HV33Z Insertion of Infusion Device into Superior Vena Cava, Percutaneous Approach (ICD-10-PCS; 2023-12-12)
PROC: 5A1955Z Respiratory Ventilation, Greater than 96 Consecutive Hours (ICD-10-PCS; principal; 2023-12-13)
PROC: 0BH17EZ Insertion of Endotracheal Airway into Trachea, Via Natural or Artificial Opening (ICD-10-PCS; 2023-12-13)
DX: J69.0 Pneumonitis due to inhalation of food and vomit (principal); J80 Acute respiratory distress syndrome; J90 Pleural effusion, not elsewhere classified; N39.0 Urinary tract infection, site not specified; Z51.5 Encounter for palliative care; D46.9 Myelodysplastic syndrome, unspecified; E11.22 Type 2 diabetes mellitus with diabetic chronic kidney disease; D75.838 Other thrombocytosis; K21.9 Gastro-esophageal reflux disease without esophagitis; I12.9 Hypertensive chronic kidney disease with stage 1 through stage 4 chronic kidney disease, or unspecified chronic kidney disease; N18.31 Chronic kidney disease, stage 3a; I48.91 Unspecified atrial fibrillation; I25.10 Atherosclerotic heart disease of native coronary artery without angina pectoris; E78.5 Hyperlipidemia, unspecified; F41.9 Anxiety disorder, unspecified; F32.9 Major depressive disorder, single episode, unspecified; Z11.52 Encounter for screening for COVID-19; M19.90 Unspecified osteoarthritis, unspecified site; R53.81 Other malaise; G47.33 Obstructive sleep apnea (adult) (pediatric); Z79.01 Long term (current) use of anticoagulants; Z79.02 Long term (current) use of antithrombotics/antiplatelets; Z79.84 Long term (current) use of oral hypoglycemic drugs; Z87.440 Personal history of urinary (tract) infections; Z97.0 Presence of artificial eye; Z86.73 Personal history of transient ischemic attack (TIA), and cerebral infarction without residual deficits; Z98.1 Arthrodesis status; Z88.0 Allergy status to penicillin; Z88.5 Allergy status to narcotic agent; Z88.1 Allergy status to other antibiotic agents
CPT/HCPCS: 31500; 32555; 36415; 36568; 36569; 36600; 70450; 71045; 71260; 74018; 74230; 74470; 76604; 76770; 80048; 80053; 80202; 81001; 81220; 82040; 82607; 82728; 82746; 82805; 82945; 82948; 83540; 83615; 83880; 84132; 84145; 84157; 84436; 84443; 84466; 84479; 84484; 85014; 85018; 85025; 85610; 85651; 86039; 86140; 86850; 86900; 86920; 87040; 87070; 87086; 87205; 88112; 88184; 88305; 89051; 93005; 93306; 94002; 94003; 94640; 94660; 94667; 94668; 94669; 94799; 96372; 99252; 99285; J0330; J0692; J0696; J1756; J1815; J1940; J2020; J2060; J2185; J2470; J2919; J3010; J7030; J7050; P9016; Q0162; Q9967; U0002

== ENCOUNTER 2023-12-20 12:55 | Inpatient (IN) | payer OTHER ==
[2023-12-20] MEDS ORDERED: BISACODYL 10 MG SUPP PR PRN (13:15)
[2023-12-20] MEDS ORDERED: LORAZEPAM INJ 2 MG/ML VIAL IV PRN (13:15)
[2023-12-20] MEDS ORDERED: ACETAMINOPHEN 650 MG SUPP PR PRN (13:15)
[2023-12-20] MEDS: LORAZEPAM INJ 2 MG/ML VIAL IV ONE (13:47)
[2023-12-20] MEDS: HYDROMORPHONE 1MG/1ML INJ IV PRN (13:48)
[2023-12-20] MEDS ORDERED: HYDROMORPHONE 1MG/1ML INJ IV ONE (14:00)
== END 2023-12-20 18:03 | disposition expired | DRG 951 ==
LOC: ICU 12:55
PROVIDERS: ADMIT Family Medicine; ATTEND Family Medicine
DX: Z51.5 Encounter for palliative care (principal); J96.01 Acute respiratory failure with hypoxia; J69.0 Pneumonitis due to inhalation of food and vomit; J90 Pleural effusion, not elsewhere classified; D50.9 Iron deficiency anemia, unspecified; R53.81 Other malaise; Z86.73 Personal history of transient ischemic attack (TIA), and cerebral infarction without residual deficits; D46.9 Myelodysplastic syndrome, unspecified; E11.22 Type 2 diabetes mellitus with diabetic chronic kidney disease; I12.9 Hypertensive chronic kidney disease with stage 1 through stage 4 chronic kidney disease, or unspecified chronic kidney disease; N18.31 Chronic kidney disease, stage 3a; I48.91 Unspecified atrial fibrillation; I25.10 Atherosclerotic heart disease of native coronary artery without angina pectoris; Z79.02 Long term (current) use of antithrombotics/antiplatelets; Z79.84 Long term (current) use of oral hypoglycemic drugs; Z87.440 Personal history of urinary (tract) infections; Z97.0 Presence of artificial eye
CPT/HCPCS: J1171; J2060